=== PATIENT | female | born 1995 | race Caucasian/White ===

== ENCOUNTER 2020-03-08 08:02 | Outpatient (CLI) | payer BC ==
[~2020-03-08] VITALS: Ht 167.6 cm; Wt 90.9 kg
[~2020-03-08 08:02] MED LIST: DEPO-PROVER150 MG/M1 IM; NORCO 325 MG-51 TAB PO
--- NOTE | 2020-03-08 08:05 | NUR ---
08- Pt arrives on unit ambulatory with . Complaints of intermittent back pain and abd tightening. Pt denies LOF, or VB. +FM per Pt. Pt into bathroom to change into gown and provide urine sample. 08- Pt into bed, EFM and TOCO on and tracing. Assessment completed. VSS. 0828- Amniotrace negative. SVE by this RN, cervix very high and posterior. Unable to palpate dilation, cervix firm.
[2020-03-08 08:17] VITALS: BP 117/67; PULSE 95; TEMP 98
[2020-03-08 08:47] LABS: COLLECTION METHOD CLEAN CATCH
[2020-03-08 09:00] VITALS: BP 117/67; PULSE 87
[2020-03-08 09:03] LABS: PH 6 (5-8); SQUAMOUS EPITHELIAL 0-2 /hpf; URINE APPEARANCE Clear; URINE BACTERIA Moderate /hpf; URINE BILIRUBIN Negative (NEGATIVE); URINE BLOOD Negative (NEGATIVE); URINE COLOR Straw; URINE GLUCOSE Negative (NEGATIVE); URINE KETONE Trace (NEGATIVE); URINE LEUKOCYTE ESTERASE Negative (NEGATIVE); URINE NITRATE Negative (NEGATIVE); URINE PROTEIN(semi-quant) Negative (NEGATIVE); URINE RBC 0-2 /hpf; URINE UROBILINOGEN Negative (NEGATIVE)
[2020-03-08 09:39] VITALS: BP 112/64; PULSE 95
== END 2020-03-08 09:50 | disposition home or self-care (01) ==
LOC: LDRO 08:02 → LDR 08:34 → LDRO 09:50 → LDR 09:50
PROVIDERS: Obstetrics & Gynecology
DX: O26.893 Other specified pregnancy related conditions, third trimester (principal); M54.5 Low back pain; Z3A.36 36 weeks gestation of pregnancy; Z87.891 Personal history of nicotine dependence
CPT/HCPCS: OP

== ENCOUNTER → 2020-04-10 | Outpatient (CLI) | payer BC ==
[~2020-04-10] MED LIST changes: +MOTRIN 800800 MG/TAB PO; +PERCOCET 325 MG1 TA2 PO; +PRENATAL TABLET PO; +PROFERRIN ES12 MG PO
== END | disposition still patient (30) ==
LOC: ZCOL.LAB 04:59
DX: Z20.822 Contact with and (suspected) exposure to COVID-19 (principal)

== ENCOUNTER 2020-04-13 07:12 | Inpatient (IN) | payer BC ==
[~2020-04-13] VITALS: Ht 170.2 cm; Wt 98.6 kg
[2020-04-13] VITALS (42 sets, daily range): BP systolic 115–160; BP diastolic 57–105; PULSE 72–110; TEMP 97.9–98.8
[~2020-04-13 07:12] MED LIST changes: -MOTRIN 800800 MG/TAB PO; -PERCOCET 325 MG1 TA2 PO; -PRENATAL TABLET PO; -PROFERRIN ES12 MG PO
[2020-04-13] MEDS ORDERED: PRENATAL TABLET PO (08:02)
[2020-04-13] MEDS ORDERED: PROFERRIN ES12 MG PO (08:02)
[2020-04-13 08:17] LABS: BASO % 0.3 % (0.0-2.0); EOS # 0.1 (0.0-0.7); EOS % 0.8 % (0-4.0); GRAN # 8.2 (1.4-6.5); GRAN % 69.4 % (42.2-75.2); HEMATOCRIT 37.2 % (37.0-47.0); HEMOGLOBIN 12.8 g/dl (12.5-16.0); LYMPH # 2.3 (1.2-3.4); LYMPH % 19.1 % (20.0-51.0); MEAN CELL VOLUME 91 fl (80.0-100.0); MEAN CORPUSCULAR HEMOGLOBIN 31 pg (27.0-31.0); MEAN CORPUSCULAR HGB CONC 34 g/dl (33.0-37.0); MEAN PLATELET VOLUME 12.4 fl (7.4-10.4); MONO # 1.1 (0.1-0.6); MONO % 9.7 % (1.7-9.3); PLATELET COUNT 188 K/mm3 (130-400); RED BLOOD COUNT 4.07 M/mm3 (4.10-5.30); REDCELL DISTRIBUTION WIDTH-CV 12.9 % (11.5-14.5)
--- NOTE | 2020-04-13 08:23 | NUR ---
Pt and spouse arrive ambulatory to unit for scheduled induction of labor at 0720. Pt changes into gown, EFM explained and placed. VS taken. Pt denies leaking of fluid and vaginal bleeding, reports occasional contractions and "back pain", lots of mucous, and good movement. IV started in LH, labs drawn, LR started per orders. Assessments complete, consents signed. Pt oriented to room and plan of care. Pt denies further needs at this time. 0810 - Dr. Whaley to pt bedside, reviews FHR strip. SVE per provider /-2. AROM, clear fluid noted.
--- NOTE | 2020-04-13 09:17 | NUR ---
Pt walking at bedside, c/o increasing back pain with contractions. Pt requests epidural at this time. C REINALDO Rubin notified.
--- NOTE | 2020-04-13 09:26 | NUR ---
0903 - Pt off monitors to use restroom at this time. 0909 - Pt back on monitors, sitting on ball. FHR difficult to trace at this time due to maternal movement and position.
--- NOTE | 2020-04-13 12:45 | NUR ---
1233 - Dr. Whaley to pt bedside, reviews FHR strip. SVE per provider 4-/-2. Orders per physician to continue plan of care, keep rotating position with peanut ball.
--- NOTE | 2020-04-13 12:47 | NUR ---
Early decelerations noted with contractions. Dr. Whaley remains on unit, monitoring FHR strip. Per physician, hold pitocin at current level.
--- NOTE | 2020-04-13 13:25 | NUR ---
Dr. Whaley to pt bedside, reviews FHR strip. SVE per provider /-1. Per provider, continue current plan of care. 1333 - Pt repositioned RL with peanut ball.
--- NOTE | 2020-04-13 14:06 | NUR ---
FHR continues to show minimal variability with subtle early and late decelerations. Dr. Whaley aware, per physician continue current plan. Pt reports increasing pressure with contractions. SVE /-1. Pt repositioned RL [facility].
--- NOTE | 2020-04-13 14:45 | NUR ---
FHR continues to alternate between periods of minimal variability and moderate variability. Pt reports worsening pressure with contractions. SVE 9/100/0. Pt repositioned RL with LL in stirrup.
--- NOTE | 2020-04-13 18:38 | NUR ---
1515 - Pt vomiting and shaking. SVE C/0. Dr. Whaley notified. Orders to start pushing at this time. Pt repositioned for pusing, verbalized readiness, questions asked and answered. RN remains at bedside. 1529 - Pt pushing with contractions. FHR shows moderate variability with variable decelerations while pushing. 1539 - Garduno removed, 450ml urine noted. 1650 - Dr. Whaley to bedside to check pt progress. FHR strip reviewed. Pt pushed with physician for 2 contractions. Orders to continue pushing. Physician remains on unit. 1705 - Dr. Whaley returns to bedside. Continues pushing with contractions with physician at bedside. 1710 - Jake Boyer RN of nursery called to bedside for delivery. Bed broken down, pt positioned for delivery. 171 - Jake Boyer RN to bedside. Pt continues pushing. 1722 - Male infant delivered via attended by Dr. Whaley. Infant placed on mother's abdomen where dried and stimulated. Care of infant transferred to Jake Boyer RN of nursery. Cord blood collected. 1723 - Placenta delivered spontaneously by Dr. Whaley. Pitocin started per protocol, fundal massage provided. Repair of 2nd degree laceration performed by Dr. Whaley, physician drained bladder using red robbin. Pericare provided, ice pack placed on perineum. Pt repositioned for comfort, denies further needs at this time.
[2020-04-14] VITALS: BP 125/80; PULSE 90; TEMP 98.6
[2020-04-14 04:15] VITALS: BP 106/55; PULSE 79; TEMP 97.9
[2020-04-14 07:28] VITALS: BP 120/80; PULSE 88; TEMP 97.6
[2020-04-14] MEDS ORDERED: PERCOCET 325 MG1 TA2 PO (09:14)
[2020-04-14] MEDS ORDERED: MOTRIN 800800 MG/TAB PO (09:14)
--- NOTE | 2020-04-14 09:26 | NUR ---
Initial visit; Parents thanked Staff Radiation Therapist for offering congratulations and God's blessings for the of their son. Staff Radiation Therapist thanked family for choosing [facility].
[2020-04-14 13:30] VITALS: BP 119/82; PULSE 83; TEMP 97.7
[2020-04-14 16:45] VITALS: BP 118/81; PULSE 78; TEMP 97.9
== END 2020-04-14 19:00 | disposition home or self-care (01) | DRG 807 ==
LOC: LDR 07:12 → OB 16:56
PROVIDERS: ADMIT Obstetrics & Gynecology
PROC: 10E0XZZ Delivery of Products of Conception, External Approach (ICD-10-PCS; principal; 2020-04-13)
PROC: 10907ZC Drainage of Amniotic Fluid, Therapeutic from Products of Conception, Via Natural or Artificial Opening (ICD-10-PCS; 2020-04-13)
PROC: 3E033VJ Introduction of Other Hormone into Peripheral Vein, Percutaneous Approach (ICD-10-PCS; 2020-04-13)
DX: O48.0 Post-term pregnancy (principal); Z37.0 Single live birth; Z3A.40 40 weeks gestation of pregnancy; O99.214 Obesity complicating childbirth; E66.9 Obesity, unspecified; O99.02 Anemia complicating childbirth; D64.9 Anemia, unspecified
CPT/HCPCS: J2405; J2590; J7120